=== PATIENT | male | born 1945 | race Caucasian/White ===

== ENCOUNTER → 2016-09-21 | Outpatient (CLI) | payer MEDICARE, OTHER | END | disposition home or self-care (01) | LOC: GMAB 10:22 | PROVIDERS: ATTEND Family Medicine | DX: Z12.5 Encounter for screening for malignant neoplasm of prostate (principal); I10 Essential (primary) hypertension; E29.1 Testicular hypofunction | CPT/HCPCS: 84403; 84443; G0103 ==

== ENCOUNTER 2016-11-23 19:17 | Emergency (ER) | payer MEDICARE, OTHER ==
[2016-11-23 19:32] VITALS: TEMP 98.6; O2SAT 98
--- NOTE | 2016-11-23 19:56 | ED.PDOC ---
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 Timing/Duration: just prior to arrival Severity: moderate Location: hands - right Improving Factors: nothing Worsening Factors: nothing Associated Symptoms: denies symptoms, other - see hpi Allergies/Adverse Reactions: Allergies NO KNOWN ALLERGY Allergy (Unverified 01/28/13 19:38) Home Medications: Ambulatory Orders Captopril 25 mg PO DAILY 12/19/13 Digoxin 0.25 mg PO DAILY 12/19/13 Furosemide [Lasix] 40 mg PO DAILY 12/19/13 Metoprolol Tartrate 25 mg PO DAILY 12/19/13 Potassium Chloride Microencaps [Klor-Con M20] 20 meq PO DAILY 12/19/13 Warfarin Sodium 10 mg PO DAILY 12/19/13 Review of Systems - Review of Systems Constitutional: States: no symptoms reported EENTM: States: no symptoms reported Respiratory: States: no symptoms reported Cardiology: States: no symptoms reported Skin: States: see HPI Past Medical History (General) - Patient Medical History Hx Seizures: No Hx Stroke: Yes Hx Dementia: No Hx Asthma: No Hx of COPD: No Hx Cardiac Disorders: Yes Hx Congestive Heart Failure: Yes Hx Pacemaker: Yes Hx Hypertension: Yes Hx Thyroid Disease: No Hx Diabetes: No Hx Gastroesophageal Reflux: No Hx Renal Disease: No Hx Cancer: No Hx of HIV: No Hx Hepatitis C: No Hx MRSA: No Surgical History: other - heart valve replacement - Vaccination History Hx Tetanus, Diphtheria Vaccination: No Hx Influenza Vaccination: Yes Hx Pneumococcal Vaccination: Yes Immunizations Up to Date: Yes - Social History Hx Tobacco Use: No Hx Alcohol Use: No Hx Substance Use: No Hx Substance Use Treatment: No Hx Depression: No - Activities of Daily Living Grooming Ability: Independent Eating (Feeding) Ability: Independent Toileting Ability: Independent Family Medical History - Family History Mother Family History: No Known Hx Family Cancer: Yes - colon-sister Physical Exam - Physical Exam General Appearance: Alert, No apparent distress Eyes, Ears, Nose, Throat Exam: PERRL/EOMI, normal ENT inspection Neck: non-tender, supple Cardiovascular/Chest: normal peripheral pulses, no gallop, no murmur Respiratory: chest non-tender, lungs clear Gastrointestinal/Abdominal: normal bowel sounds, non tender, soft, no organomegaly Back Exam: normal inspection, no CVA tenderness Neurologic: alert, normal mood/affect, oriented x 3 Skin Exam: warm/dry, normal color Skin Problem Location: upper extremities - right hand Skin Character: other - skin tear right hand Lymphatic: no adenopathy Progress - Progress Progress: 11/23/16 20:00 Wound care done with application of surgicel covered sterile pressure dressing Departure - Departure Clinical Impression: Skin tear of right hand without complication Qualifiers: Encounter type: initial encounter Qualified Code(s): S61.411A - Laceration without foreign body of right hand, initial encounter Time of Disposition: 20:04 Disposition: Discharge to Home or Self Care Condition: Good Departure Forms: ED Discharge - Pt. Copy, Patient Portal Self Enrollment Instructions: DI for Avulsion Laceration (Not Requiring Sutures) Referrals: Tin Rachel MD [Primary Care Provider] - 1-2 Weeks Home Medications: Ambulatory Orders Captopril 25 mg PO DAILY 12/19/13 Digoxin 0.25 mg PO DAILY 12/19/13 Furosemide [Lasix] 40 mg PO DAILY 12/19/13 Metoprolol Tartrate 25 mg PO DAILY 12/19/13 Potassium Chloride Microencaps [Klor-Con M20] 20 meq PO DAILY 12/19/13 Warfarin Sodium 10 mg PO DAILY 12/19/13 Additional Instructions: Return to emergency room as needed;Follow up with primary md in one week if needed
[2016-11-23] MEDS ORDERED: TETANUS,DIPHTHERIA,PERTUSSIS 1 EA SYG IM ONE (19:57)
[2016-11-23 20:07] VITALS: BP 151/95
== END 2016-11-23 20:07 | disposition home or self-care (01) ==
LOC: ER 19:17
DX: S61.411A Laceration without foreign body of right hand, initial encounter (principal); I11.0 Hypertensive heart disease with heart failure; I50.9 Heart failure, unspecified; Z79.01 Long term (current) use of anticoagulants; Z79.899 Other long term (current) drug therapy; Z95.2 Presence of prosthetic heart valve; Z86.73 Personal history of transient ischemic attack (TIA), and cerebral infarction without residual deficits; Z23 Encounter for immunization; W45.8XXA Other foreign body or object entering through skin, initial encounter; W20.8XXA Other cause of strike by thrown, projected or falling object, initial encounter; Y92.009 Unspecified place in unspecified non-institutional (private) residence as the place of occurrence of the external cause

== ENCOUNTER → 2017-06-06 | Outpatient (CLI) | payer MEDICARE, OTHER | LOC: GMAB 17:10 | PROVIDERS: ATTEND Family Medicine | DX: M10.9 Gout, unspecified (principal) ==

== ENCOUNTER → 2017-07-29 | Outpatient (CLI) | payer MEDICARE, OTHER | LOC: GMAB 16:40 | PROVIDERS: ATTEND Family Medicine | DX: R06.02 Shortness of breath (principal); R60.0 Localized edema ==

== ENCOUNTER 2017-09-27 08:39 | Inpatient (IN) | payer MEDICARE, OTHER ==
--- NOTE | 2017-09-27 09:22 | ED.PDOC ---
History of Present Illness - General Chief Complaint: General Stated Complaint: Decreased endurance, weakness Time Seen by Provider: 09/27/17 08:49 Source: patient Exam Limitations: no limitations - History of Present Illness Initial Comments: Terrell Hermosillo 72 y/o male stated that he had been SOB for the last 4 weeks with exertional dyspnea and chest discomfort had seen primary md and was told that he had low blood.takes coumadin for his heart valve replacement and mentioned that he occasional tarry stools as well as purplish blood in stool denies hematemesis.Also had colonoscopy 5 years ago no abnormalities noted. Timing/Duration: other - 4 weeks Severity: moderate Improving Factors: nothing Worsening Factors: nothing Associated Symptoms: shortness of breath, other - see hpi Allergies/Adverse Reactions: Allergies NO KNOWN ALLERGY Allergy (Verified 09/27/17 08:54) Home Medications: Ambulatory Orders Captopril 25 mg PO DAILY 12/19/13 Digoxin 0.25 mg PO DAILY 12/19/13 Furosemide [Lasix] 40 mg PO DAILY 12/19/13 Metoprolol Tartrate 25 mg PO DAILY 12/19/13 Potassium Chloride Microencaps [Klor-Con M20] 20 meq PO DAILY 12/19/13 Warfarin Sodium 10 mg PO SUTUTHSA 12/19/13 Warfarin Sodium 5 mg PO MOWEFR 09/27/17 Review of Systems - Review of Systems Constitutional: States: weakness EENTM: States: no symptoms reported Respiratory: States: see HPI, short of breath Cardiology: States: other - chest discomfort Gastrointestinal/Abdominal: States: see HPI Genitourinary: States: no symptoms reported Musculoskeletal: States: no symptoms reported Skin: States: no symptoms reported Neurological: States: no symptoms reported Hematologic/Lymphatic: States: see HPI Past Medical History (General) - Patient Medical History Hx Seizures: No 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 Hx Dementia: No Hx Asthma: No Hx of COPD: No Hx Cardiac Disorders: Yes - Valve replacements Hx Congestive Heart Failure: Yes Hx Pacemaker: Yes Hx Hypertension: Yes Hx Thyroid Disease: No Hx Diabetes: No Hx Gastroesophageal Reflux: No Hx Renal Disease: No Hx Cancer: No Hx of HIV: No Hx Hepatitis C: No Hx MRSA: No Surgical History: cholecystectomy, pacemaker, tonsillectomy, other - heart valve replacement - Vaccination History Hx Tetanus, Diphtheria Vaccination: No Hx Influenza Vaccination: Yes - 2017 Hx Pneumococcal Vaccination: Yes - Social History Hx Tobacco Use: No Hx Alcohol Use: No Hx Substance Use: No Hx Substance Use Treatment: No Hx Depression: No Hx Physical Abuse: No Hx Emotional Abuse: No - Activities of Daily Living Patient Lives Alone: No - Grooming Ability: Independent Eating (Feeding) Ability: Independent Toileting Ability: Independent Family Medical History - Family History Mother Family History: No Known Living Status: Hx Family Cancer: Yes - colon-sister Physical Exam - Physical Exam General Appearance: Alert, Comfortable, No apparent distress Eye Exam: right other - legally blind, left normal Ears, Nose, Throat: hearing grossly normal, normal ENT inspection, normal pharynx Neck: non-tender, full range of motion, supple Respiratory: chest non-tender, lungs clear, normal breath sounds, no respiratory distress Cardiovascular/Chest: normal peripheral pulses, regular rate, rhythm, no gallop , other - crisp heart valve Peripheral Pulses: radial,right: 2+, radial,left: 2+ Gastrointestinal/Abdominal: normal bowel sounds, non tender, soft, no organomegaly Rectal Exam: normal rectal tone, heme positive stool Back Exam: no CVA tenderness, no vertebral tenderness Extremity: non-tender, normal inspection, no calf tenderness, pedal edema - 2+ bilaterally Neurologic: no motor/sensory deficits, alert, oriented x 3 Skin Exam: normal color, warm/dry Lymphatic: no adenopathy Progress - Progress Progress: 09/27/17 09:25 Vital Signs - 8 hr 09/27/17 08:49 Temperature 97.6 F Pulse Rate [ 65 Apical] Respiratory 20 Rate Blood Pressure 139/78 [Left Arm] O2 Sat by Pulse 100 Oximetry - Results/Orders Results/Orders: 09/27/17 09:26 URINALYSIS Stat 09/27/17 09:45 PRBC [PACKED CELLS,LR] Stat TYPE AND SCREEN Stat Laboratory Results - last 24 hr 09/27/17 09/27/17 09/27/17 09:00 09:42 09:45 WBC 7.8 RBC 1.90 L Hgb 6.1 L* Hct 18.0 L MCV 94.3 H MCH 32.1 H MCHC 33.7 RDW 16.5 H Plt Count 190 MPV 9.6 Absolute Neuts (auto) 5.90 Absolute Lymphs (auto) 1.00 Absolute Monos (auto) 0.70 Absolute Eos (auto) 0.10 Absolute Basos (auto) 0.10 Neutrophils % 75.3 Lymphocytes % 13.1 L Monocytes % 9.1 H Eosinophils % 1.5 Basophils % 1.0 PT 37.5 H* INR 3.270 PTT (SP) 48.3 H Sodium 137 Potassium 4.3 Chloride 103 Carbon Dioxide 27 Anion Gap 11.3 L BUN 22 H Creatinine 1.12 BUN/Creatinine Ratio 19.6 Random Glucose 107 H Serum Osmolality 277.6 Calcium 8.6 Magnesium 2.2 Total Bilirubin 0.9 Direct Bilirubin 0.2 Indirect Bilirubin 0.7 AST 29 ALT 12 Alkaline Phosphatase 37 L Creatine Kinase 29 L CK-MB (CK-2) 1.9 CK-MB (CK-2) % Not Reportable Troponin I 0.02 B-Natriuretic Peptide 104.0 H Serum Total Protein 6.4 Albumin 3.6 Stool Occult Blood Positive Patient ABO/Rh A POSITIVE Antibody Screen Negative Crossmatch See Detail - EKG/XRAY/CT XRAY: chest - cardiomegaly;no chf Departure - Departure Clinical Impression: [facility] (current) use of anticoagulants, History of heart valve replacement with mechanical valve Gastrointestinal bleed Qualifiers: GI bleed type/associated pathology: unspecified gastrointestinal hemorrhage type Qualified Code(s): K92.2 - Gastrointestinal hemorrhage, unspecified Time of Disposition: 11:32 Disposition: Admit Patient Departure Forms: ED Discharge - Pt. Copy, Patient Portal Self Enrollment Referrals: CLOVER BURGOS MD [Primary Care Provider] - 1-2 Weeks Home Medications: Ambulatory Orders Captopril 25 mg PO DAILY 12/19/13 Digoxin 0.25 mg PO DAILY 12/19/13 Furosemide [Lasix] 40 mg PO DAILY 12/19/13 Metoprolol Tartrate 25 mg PO DAILY 12/19/13 Potassium Chloride Microencaps [Klor-Con M20] 20 meq PO DAILY 12/19/13 Warfarin Sodium 10 mg PO SUTUTHSA 12/19/13 Warfarin Sodium 5 mg PO MOWEFR 09/27/17 Decision To Admit - Decistion To Admit Decision to Admit Reason: Admit from ER Decision to Admit Date: 09/27/17 - D/W Romulo Langford-ANP/Hospitalist Decision to Admit Time: 11:32
--- NOTE | 2017-09-27 10:09 | RAD ---
EXAM DESCRIPTION: Chest,1 View CLINICAL HISTORY: 72 years Male, SOB COMPARISON: Previous study December 19, 2013, previous report chest x-ray July 29, 2017 TECHNIQUE: AP portable chest. FINDINGS: Heart size is large with prominent central pulmonary vascularity. Cardiac pacer is in place. Blunting of left costophrenic angle suggests a small amount of pleural fluid. No consolidating infiltrate. No pulmonary mass or worrisome nodule. No pneumothorax or large pleural effusion. Bones are unremarkable. Findings are similar to previous study in November 2013. IMPRESSION: Large heart without congestive failure. Small left pleural effusion. Electronically signed by: Nickolas Tsai MD 09/27/2017 10:08 AM CDT
[2017-09-27] MEDS ORDERED: PANTOPRAZOLE INJECTION 80 MG in SODIUM CHLORIDE 0.9% 100ML 80 ML IVPB ONE (10:41)
[2017-09-27] MEDS ORDERED: PANTOPRAZOLE SODIUM IV 40 MG VIAL ONE (10:57)
[2017-09-27] MEDS ORDERED: SODIUM CHLORIDE 0.9% 100ML 100 ML IVPB ONE (10:58)
[2017-09-27] MEDS ORDERED: SODIUM CHLORIDE 0.9% 250ML 250 ML ONE (12:17)
--- NOTE | 2017-09-27 13:20 | HP ---
SUPERVISING PHYSICIAN: Portillo De La Paz M.D. CHIEF COMPLAINT: Increasing weakness. HISTORY OF PRESENT ILLNESS: Mr. Hermosillo is a 72 year-old male patient that has been in the past followed by Dr. Rachel. He has a history of being on Coumadin for dual valve replacement. Today, he presented to the Emergency Department complaining of shortness of breath that he noted had been increasing over the last 4 weeks with increasing exertional dyspnea and some mild chest discomfort. He was seen in the office this morning and was told that he had an extremely low blood count. He noted that he had been having some occasional tarry stools as well as some purplish blood in his stools. Denied any actual hematemesis. He reports that he had a colonoscopy in 2014 that was not with any abnormal findings. His H&H in the Emergency Room on presentation showed he had a hemoglobin of 6.1, hematocrit 18.0 with platelet count 190,000. His coagulation studies showed he had a PT of 37.5 with INR of 3.27 and PTT of 48.3. Troponin was less than 0.02. He was showing to be hemodynamically stable with initial blood pressure in the Emergency Department of 139/78, heart rate 65. He was satting 100% on room air with respirations of 20. Given the significant anemia, a cross match was started and he was given 2 units of blood initially in the Emergency Department. I was called for admission and after further visiting with the patient and going over the patient's history, his drop in hemoglobin appears to be occurring over at least a month or more and appears to be without any acute findings, and he is stable in regards to his blood pressure therefore the patient will now be admitted to the Medical/ Surgical floor for further treatment and evaluation of his underlying anemia. He was admitted in stable condition. PAST MEDICAL HISTORY: 1. Congestive heart failure. 2. Rheumatic fever at age 7. 3. Gouty arthritis. 4. Mitral and aortic valve replacement with a St. Álvaro's valve. 5. Cardiac pacemaker implantation. 6. Sick sinus syndrome with severe sinus bradycardia. 7. Transient ischemic attack. 8. Atrial fibrillation on Digoxin and Coumadin. PAST SURGICAL HISTORY: 1. Cholecystectomy in 2001. 2. Tonsillectomy. 3. Cardiac valve replacement including aortic and mitral valve in 1976, 1979 [address] Álvaro valve. 4. Pacemaker implantation. OUTPATIENT MEDICATIONS: 1. Coumadin 5 mg Saturday, Saturday and Saturday. 2. Potassium chloride 20 mEq daily. 3. Metoprolol 25 mg daily. 4. Lasix 40 mg daily. 5. Digoxin 0.25 mg daily. 6. Captopril 25 mg daily. ALLERGIES: NO KNOWN DRUG ALLERGIES. FAMILY HISTORY: Significant for colon cancer in his dad. Valvular disease in his sister. SOCIAL HISTORY: The patient is disabled due to valvular heart disease and congestive heart failure. He is and lives in [place]. He has a history of smoking but quit 40 years previously. REVIEW OF SYSTEMS: CONSTITUTIONAL: As per History of Present Illness, increasing weakness, general malaise. HEENT: No headaches, sore throat, nasal congestion, ear aches. RESPIRATORY: As noted in History of Present Illness, increasing shortness of breath with exertional dyspnea. No wheezing or cough. CARDIOVASCULAR: Some mild chest discomfort. No reported chest pains or palpitations or syncopal episodes. GASTROINTESTINAL: As noted in History of Present Illness, dark tarry stools over the last several weeks. No ascencion blood. No hematemesis. No abdominal pain, constipation or diarrhea. GENITOURINARY: Denies any dysuria, hematuria, polyuria or other urinary symptoms. NEUROLOGIC: Denies any seizures, ataxia, syncopal episodes or other neurologic deficits. PHYSICAL EXAMINATION: VITAL SIGNS: In the Emergency Department showed initially he had a temperature of 97.6, pulse 65, blood pressure 139/78, respirations 20, satting 100% on room air. GENERAL: The patient appeared to be resting comfortably in no acute distress. He does look tired and somewhat pale. HEENT: Tympanic membranes were clear bilaterally. The patient is legally blind in his right eye. Oropharynx is pink and moist without any lesions. Sclera were pale. NECK: Supple, non-tender with full range of motion. CHEST: Clear to auscultation without any rhonchi, wheezing or rales. CARDIOVASCULAR: Regular rate and rhythm with no gallops or rubs with a notable valvular sound with a slight murmur. GASTROINTESTINAL: Bowel sounds were normal. Abdomen was soft, non-tender. No guarding or rebound tenderness. EXTREMITIES: No clubbing or cyanosis. There was 1+ pedal edema bilaterally. NEUROLOGIC: He is alert and oriented times three. Facial features were symmetrical. Extraocular movements are within normal limits. There was no notable nystagmus. RECTAL: Exam was deferred as this was performed by the E. [facility]. physician. Noted normal rectal tone with heme positive stools. LABORATORY: CBC showed a white count of 7,800 with hemoglobin 6.1, hematocrit 18.0. RBC indices indicated a macrocytic hypochromic presentation with platelet count 190,000. Differential showed to be without a left shift. Coagulation studies showed an elevated PT at 37.5 with INR 3.27, PTT of 48.3. Chemistries showed normal electrolytes with BUN 22, creatinine 1.12, magnesium 2.2, calcium 8.6. Liver functions were all within normal limits. Troponin was 0.02. He had 1 occult blood that was positive. RADIOLOGY: Chest x-ray in the Emergency Department per radiology interpretation showed large heart without congestive failure. There is a small left pleural effusion. ASSESSMENT 1. Symptomatic anemia with the patient on Coumadin secondary to prosthetic heart valves with questionable upper gastrointestinal bleed with no noted acute loss and the patient showing to be stable. 2. Generalized weakness secondary to significant anemia. 3. History of rheumatic heart disease with heart valve replacements of the mitral and aortic valves. 4. Chronic congestive heart failure secondary to valvular disease and prosthetic heart valves from rheumatic fever with no current echocardiogram available for review at time of admission. 5. History of gouty arthritis. PLAN: The patient is going to be admitted to the Medical/Surgical floor for initiation of blood. He was initially given a unit in the E. R. This will be continued up with a total of 2 which will be followed-up with an H&H after the second unit. If he shows a significant increase, will continue to observe. If not significantly increased on initial 2 units, will certainly give a third unit. Will closely monitor his H&H at least for 24 to 48 hours to ensure he is not showing any acute loss. Will order occult bloods. Will hold his Coumadin tonight as his INR was slightly elevated at 3.2 which is his therapeutic range, but given the risk for GI bleed will reassess in the morning and treat appropriately with dosing of his Coumadin. Resume all of his other medications as appropriate once those have been updated and verified. Will anticipate length of stay to be at least 2 to 3 days. Until showing to be clinically stable in regards to his H&H, will continue to monitor and treat appropriately. If the patient shows any decline in his clinical condition, certainly will warrant transfer to [facility] for gastrointestinal consultation emergently , but at this point the patient is showing to be stable and will continue to treat here. Until discharge, will monitor and treat appropriately. #[id number] [facility]
[2017-09-27] MEDS ORDERED: ONDANSETRON INJ 4 MG/2 ML VIAL IV PRN (14:38)
[2017-09-27] MEDS ORDERED: ACETAMINOPHEN 325 MG TAB PO PRN (14:38)
[2017-09-27] MEDS ORDERED: SODIUM CHLORIDE 0.9% (FLUSH) 10 ML SYG IV PRN (14:38)
[2017-09-27] MEDS ORDERED: ACETAMINOPHEN 325 MG TAB PO ONE ×2 (14:47→22:53)
[2017-09-27] MEDS ORDERED: diphenhydrAMINE HCL 50 MG/ML VIAL IV ONE (14:47)
[2017-09-27] MEDS ORDERED: SODIUM CHLORIDE 0.9% 500ML 500 ML IVS SCH (15:00)
[2017-09-27] MEDS ORDERED: IV SET AND CAP CHANGE INJ INJ SCH (15:00)
[2017-09-27] MEDS: SUCRALFATE 1 GM TAB PO SCH ×2 (16:30→21:29)
[2017-09-27] MEDS: PANTOPRAZOLE SODIUM IV 40 MG VIAL IV SCH (21:29)
[2017-09-27] MEDS ORDERED: FUROSEMIDE INJ 20 MG/2 ML VIAL IV ONE (22:53)
[2017-09-28] MEDS: SUCRALFATE 1 GM TAB PO SCH ×4 (06:17→20:30)
[2017-09-28] MEDS ORDERED: METOPROLOL TARTRATE 25 MG TAB PO SCH (09:00)
[2017-09-28] MEDS ORDERED: FUROSEMIDE 40 MG TAB PO SCH (09:00)
[2017-09-28] MEDS ORDERED: CAPTOPRIL 25 MG PO SCH (09:00)
[2017-09-28] MEDS ORDERED: POTASSIUM CHLORIDE 20 MEQ TAB PO SCH (09:00)
[2017-09-28] MEDS: DIGOXIN 0.25 MG TAB PO SCH ×2 (11:00→14:45)
[2017-09-28] MEDS: PANTOPRAZOLE SODIUM IV 40 MG VIAL IV SCH ×2 (11:13→20:30)
[2017-09-28] MEDS ORDERED: WARFARIN SODIUM 2.5 MG TAB PO SCH (12:00)
[2017-09-28 22:01] VITALS: BP 138/65; TEMP 98.8; O2SAT 97
--- NOTE | 2017-09-28 22:43 | PN ---
DATE: 09/28/17 SUPERVISING PHYSICIAN: Portillo De La Paz M.D. SUBJECTIVE: The patient got 4 units of blood total since admission without any complications. He notes that he feels much better. No longer feels weak, short of breath or have any chest discomfort. He has had 1 melenic stool but in between he had normal-looking stools. He has had no nausea or vomiting and he has been afebrile. OBJECTIVE: VITAL SIGNS: Temperature 98.4, pulse 71, blood pressure 122/65, respirations 14, satting 98% on room air. Weight was 86.1 kg. CHEST: Lungs were clear to auscultation bilaterally. HEART: Slightly irregular rate and rhythm. ABDOMEN: Soft, non-tender. Positive bowel sounds. EXTREMITIES: No clubbing, cyanosis or edema. NEUROLOGIC: He is alert and oriented times three. LABORATORY: H&H after 2 units was 7.4 and 21.6 last night and then after an additional 2 units for a total of 4 this morning it was 8.8 and 26.1. Coagulation studies include PT of 26.0 with INR 2.26. Chemistries continue to show normal electrolytes, BUN 19, creatinine 1.19. He did have 1 stool occult blood that was positive in the E. R. He has not had any additional collections since admission. ASSESSMENT: 1. Symptomatic anemia with the patient on Coumadin therapy for prosthetic heart valve with concerns for an upper gastrointestinal bleed with no noted acute loss and the patient showing to be hemodynamically stable requiring transfusion of 4 units . 2. Generalized weakness secondary to significant anemia. 3. History of rheumatic heart disease with heart valve replacements of the mitral and aortic valves chronic Coumadin. 4. Chronic congestive heart failure secondary to valvular disease and prosthetic heart valves from rheumatic fever with no current echocardiogram available for review at time of admission with the patient having no signs of exacerbation. 5. History of gouty arthritis. PLAN: The patient received a total of 4 units since this morning. Will plan to again check his H&H tonight at 8:00. The threshold at this point as he is on Coumadin is to maintain his hemoglobin at least above 8.2 if possible in efforts to hopefully discharge the patient to followup on Saturday with Dr. Li to have additional workup in regards to the GI bleed. His INR this morning was continuing to be therapeutic but on the low side, therefore will continue his Coumadin but I will drop his dose at 2.5 as he is a high risk for thrombosis due to his heart valves, but this does complicate his questionable GI bleed and will continue to closely monitor. Should he show at any time to be clinically unstable or show a dramatic loss, certainly will transfer the patient to [place] where he has seen GI previously and where his heart doctors are. If he remains stable, the plan will be to repeat an H&H in the morning and then discharge home to have close clinical followup on Saturday. Will plan to repeat an H&H in the morning along with a PT and INR, and again if stable discharge tomorrow morning. Until then, continue to monitor and treat appropriately. #[id number] [facility]
--- NOTE | 2017-09-30 09:22 | DS ---
SUPERVISING PHYSICIAN: Portillo De La Paz MD ADMISSION DIAGNOSIS: 1. Symptomatic anemia with the patient on Coumadin due to prosthetic heart valves with concern upper gastrointestinal bleed, unsure of acute loss versus chronic as the patient was stable on admission and having a therapeutic Coumadin level. 2. Generalized weakness secondary to #1. 3. History of rheumatic heart disease with heart valve replacements of the mitral and aortic valves with [place] [place] valve. 4. Chronic congestive heart failure secondary to valvular disease and prosthetic heart valves ad noted above. 5. History of gouty arthritis. DISCHARGE DIAGNOSIS: 1. Symptomatic anemia requiring transfusion of 4 units of packed red blood cells showing the patient to have stable hemoglobin and hematocrit, again, with the patient on Coumadin and showing therapeutic levels with concerns for an upper gastrointestinal bleed, but no acute loss while hospitalized with the patient remaining hemodynamically stable. 2. Generalized weakness secondary to #1, improved after transfusions. 3. History of rheumatic heart disease with heart valve replacements of the mitral and aortic valves. 4. History of chronic congestive heart failure due to valvular disease and prosthetic heart valves with no current echocardiogram available for review at time of admission with the patient having no signs of exacerbation. 5. History of gouty arthritis. REASON FOR HOSPITALIZATION: Mr. Hermosillo is a 72-year-old male patient that has been in the past followed by Dr. Rachel. He is now being followed by Dr. Li. He has a history of being on chronic Coumadin therapy for dual valve replacement. On the day of admission, he presented to the Emergency Department complaining of shortness of breath and he noted this had been increasing over the last 4 weeks with increasing exertional dyspnea and some mild chest discomfort. He was seen in the office the same day and was told that he had an extremely low blood count and was referred to the Emergency Department. He noted that he had been having some occasional tarry stools that had been present for well over 4 weeks and describes as some purplish blood at times. Denied any actual hematemesis. He reports that he had a colonoscopy in 2014 that was not with any abnormal findings. His hemoglobin and hematocrit in the Emergency Room on presentation was 6.1, hematocrit 18.0 with platelet count 190,000. He was hemodynamically stable. His coagulation studies showed he had a PT of 37.5 with INR of 3.27 and PTT of 48.3. Troponin was less than 0.02. Given the significant anemia, a cross match was started and he was given 2 units of blood initially in the Emergency Department. I was called for admission of the patient for additional transfusion and further monitoring the patient with concerns for possible acute GI bleed. It was noted the patient had a history of some stools that were described as tarry, but his drop in hemoglobin and hematocrit had occurred over at least 4 weeks and appear to be without any acute findings and he was stable at time of admission. His blood pressure was 139/78, heart rate 65. The patient was without any complaints, having no chest pain. He was admitted in stable condition. LABORATORY: CBC on admission showed hemoglobin 6.1, hematocrit 18.0, platelet count 190,00. After 2 unit transfusion, his hemoglobin had gone up to 7.4 and hematocrit 21.6. An additional 2 units for total of 4 unit transfusion since admission and repeat hemoglobin and hematocrit were 8.8 and 26.1. On the date of discharge, later that night, his hemoglobin and hematocrit had stabilized and was 9.0 and 26.8. Coagulation studies showed initially his INR was 3.27 on admission and after holding his Coumadin for 24 hours, at discharge was 2.26. Chemistries showed normal electrolytes both on admission and at discharge. BUN was initially elevated at 22, but had gone down to 19 prior to discharge. Creatinine 1.19. All liver functions were normal. Troponin normal at 0.02. He had one occult blood in the Emergency Room that was positive. No other stools were obtained. He had a chest x-ray initially on admission and per radiologic interpretation of a single view chest, there was a large heart without any congestive failure, just a small left pleural effusion. HOSPITAL COURSE: Mr. Hermosillo was admitted from the Emergency Room as noted above for significant anemia that was symptomatic. He was initially cross-matched and given 1 unit in the Emergency Department and then admitted in stable condition for an additional unit, for a total of 2. Hemoglobin had shown some improvement, but continued to be significantly low and he was given additional 2 units for a total of 4 units. He had no complications with his infusion and was showing signs of acute loss, no dark tarry stools, no bright red blood, no nausea or vomiting. Hemoglobin and hematocrit were stabilizing after the units were transfused. Initial INR was therapeutic, however, dose was held for 24 hours and restarted on 2.5 mg of Coumadin on day of discharge with his INR continuing to be therapeutic. Given that his hemoglobin and hematocrit had stabilized and was actually showing improvement after 12 hours post transfusion , it was felt the patient was stable enough to be discharged to have followup in the outpatient setting. The patient was started on Protonix 80 mg b.i.d. as well as Carafate. PLAN: The patient was instructed to followup on the following morning, 09/29/17, for repeat hemoglobin and hematocrit and PT and INR. He was given a lab slip and was instructed to remain in the lab could be completed and could be reviewed in order to ensure that his hemoglobin and hematocrit were stable and to further determine next needed dose of Coumadin. He was to resume his normal diet and home medications except for the Coumadin as noted above with further adjustments based on labs to be determined after discharge. He was to have close clinical followup with Dr. Li on Saturday and to call their office at 8 o'clock to establish that appointment. He was told to return to the Emergency Room should he have any return of symptoms or increased number of stools, bloody stools, bright red blood or any dark stools or any other concerning symptoms. Diet was to be a soft mechanical diet, advancing to a regular diet as tolerated. He was told to avoid spicy foods, acidic foods as well as any alcohol. Activity to increase as tolerated. DISCHARGE MEDICATIONS: 1. Protonix 40 mg daily, #30. 2. Carafate tablets 1 gram before each meal and at bedtime, #28. 3. Coumadin was to be held until levels could be completed after discharge. All other medications were resumed as previous. Condition at discharge was stable and improved. #[id number] [facility]
== END 2017-09-28 10:00 | disposition home or self-care (01) | DRG 812 ==
LOC: ER 08:39 → MS 13:19
PROVIDERS: ADMIT Family Medicine; ATTEND Nurse Practitioner Family
PROC: 30233N1 Transfusion of Nonautologous Red Blood Cells into Peripheral Vein, Percutaneous Approach (ICD-10-PCS; principal; 2017-09-27)
PROC: 30233N1 Transfusion of Nonautologous Red Blood Cells into Peripheral Vein, Percutaneous Approach (ICD-10-PCS; 2017-09-28)
DX: D64.9 Anemia, unspecified (principal); K92.1 Melena; R53.1 Weakness; I11.0 Hypertensive heart disease with heart failure; I50.9 Heart failure, unspecified; I48.91 Unspecified atrial fibrillation; M10.9 Gout, unspecified; Z95.2 Presence of prosthetic heart valve; Z79.01 Long term (current) use of anticoagulants; Z95.0 Presence of cardiac pacemaker; Z86.73 Personal history of transient ischemic attack (TIA), and cerebral infarction without residual deficits; Z79.899 Other long term (current) drug therapy; Z87.891 Personal history of nicotine dependence

== ENCOUNTER → 2017-09-29 | Outpatient (CLI) | payer MEDICARE, OTHER | LOC: LAB.O 09:09 | PROVIDERS: ATTEND Nurse Practitioner Family | DX: K92.2 Gastrointestinal hemorrhage, unspecified (principal); Z79.01 Long term (current) use of anticoagulants ==

== ENCOUNTER → 2017-10-15 | Outpatient (CLI) | payer MEDICARE, OTHER | LOC: GMAE 10:46 | PROVIDERS: ATTEND Family Medicine | DX: D50.8 Other iron deficiency anemias (principal); E53.8 Deficiency of other specified B group vitamins ==

== ENCOUNTER → 2017-10-28 | Outpatient (CLI) | payer MEDICARE, OTHER | LOC: GMAE 16:42 | PROVIDERS: ATTEND Family Medicine | DX: R25.2 Cramp and spasm (principal) ==

== ENCOUNTER → 2017-12-02 | Outpatient (CLI) | payer MEDICARE, OTHER | LOC: GMAE 11:33 | PROVIDERS: ATTEND Family Medicine | DX: D50.8 Other iron deficiency anemias (principal); E53.8 Deficiency of other specified B group vitamins ==

== ENCOUNTER 2018-02-21 10:50 | Inpatient (IN) | payer MEDICARE, OTHER ==
[2018-02-21] MEDS ORDERED: NITROGLYCERIN 0.4 MG 25 EA TAB SL PRN ×2 (11:03→11:07)
--- NOTE | 2018-02-21 11:03 | HP ---
SUPERVISING PHYSICIAN: Portillo De La Paz MD CHIEF COMPLAINT: Shortness of breath and extreme weakness. HISTORY OF PRESENT ILLNESS: This is a 72-year-old male patient who was seen in his primary care physician's office earlier in the week due to a hemorrhage in his eye. He is on chronic Coumadin therapy for a mechanical heart valve and his INR is supposed to be between 3 and 4. He has seen Dr. Luis, outpatient interviewing clerk, that has no concerns right now. He was seeing his primary care physician today as followup and on his appointment today, he was very short of breath and extremely weak. He said he had a difficult time just walking. Dr. Li ran a CBC on him and his WBCs were 6.8, hemoglobin 8.3 and hematocrit 26.6. He also has rales throughout all chest calderón and had 3+ pitting edema on his lower extremities. INR was slightly subtherapeutic at 2.6 and I was called for direct admission to the hospital to treat for congestive heart failure and anemia. The patient noted that he has had anemia for quite some time. He had an upper GI at some point in the last few months and they did not find anything conclusive. He is to continue his workup next week with his GI specialist for colonoscopy for further evaluation of this normocytic/normochromic anemia. He also has a significant history of heart failure. There is no echocardiogram to review on the patient, but he has had several bouts of rheumatic fever as a child which have resulted in rheumatic heart disease. He has had three open heart surgeries as well as pacemaker insertion. He actually had a pig valve at one time, but he now has a mechanical valve, thus his INR needing to be between 3 and 4. The patient is being directed admitted to the Medical/Surgical Floor at the hospital. PAST MEDICAL HISTORY: 1. Normocytic/normochromic anemia of unknown etiology. 2. Congestive heart failure of unknown etiology with no current echocardiogram to review. 3. History of rheumatic fever as a child resulting in rheumatic heart disease. 4. Gouty arthritis, presently on no medications. He only rarely has flare-ups. 5. Several transient ischemic attack and mini-strokes due to trying to come off of Coumadin therapy. PAST SURGICAL HISTORY: 1. Cholecystectomy. 2. Tonsillectomy. 3. Three heart surgeries including aortic and mitral valve replacement. He presently has a mechanical valve. 4. Pacemaker insertion. OUTPATIENT MEDICATIONS: 1. Captopril. 2. Carvedilol. 3. Digoxin. 4. Furosemide. 5. Potassium chloride. 6. Warfarin. ALLERGIES: NO KNOWN DRUG ALLERGIES. SOCIAL HISTORY: He quit smoking over 50 years ago. He denies any ETOH or illicit drug use. REVIEW OF SYSTEMS: GENERAL: Positive for fatigue. Negative for fever or weight changes. HEENT: Positive for left eye pressure resulting in eye hemorrhage. Negative for blurred vision ear pain, sinus symptoms or sore throat. RESPIRATORY: Positive fro dyspnea and occasional wet cough. Negative for wheezing. CARDIAC: Negative for chest pain. Positive for orthopnea, pedal edema. He does have to sleep with multiple pillows due to his shortness of breath. GASTROINTESTINAL: Negative for nausea, vomiting, diarrhea, constipation or abdominal pain. GENITOURINARY: Negative for hematuria, dysuria or polyuria. INTEGUMENT: Negative for lesions or rashes. NEUROLOGIC: Negative for headache, dizziness or seizures. PHYSICAL EXAMINATION: VITAL SIGNS: Temperature 98.2. Heart rate 61. Blood pressure 137/89. Respiratory rate 24. O2 saturation 98% on room air. GENERAL: This is a 72-year-old male patient sitting up in his hospital bed. He is in mild respiratory distress. He speaks in short phrases because of his shortness of breath. HEENT: Normocephalic, atraumatic. Pupils are equal and reactive. He does have his left eye with hemorrhage. NECK: Supple without mass. Mild jugular venous distention. RESPIRATORY: The patient is tachypneic. There are scattered rales throughout all lung field. CHEST: There is equal rise and fall of the chest with inspiration and expiration. CARDIOVASCULAR: Regular rate and rhythm. There is systolic murmur noted. GASTROINTESTINAL: Abdomen is soft, nondistended, nontender. Bowel sounds are positive. EXTREMITIES: No cyanosis or clubbing. He has bilateral pedal edema at +3. NEUROLOGIC: Awake, alert and oriented times three. Cranial nerves II-XII are grossly intact. LABORATORY: CBC from [facility] shows WBCs 6.8, hemoglobin 8.3, hematocrit 26.6. MCH 31.4, MCHC 31.2. Neutrophils 75.4. INR 2.6. BNP 268, magnesium 2. His other labs are pending at this time. IMPRESSION: 1. Congestive heart failure of unknown etiology with acute exacerbation. 2. Normocytic/normochromic anemia of unknown etiology. He will have a workup next week with a colonoscopy with his GI specialist. 3. Rheumatic heart disease resulting in multiple heart surgeries. He presently has a mechanical valve and a pacemaker. 4. Subtherapeutic INR, which should be between 3 and 4. 5. Left eye hemorrhage, being followed by optometry and no concerns for immediate problems. PLAN: We will admit the patient to the hospital. I have initiated congestive heart failure guidelines. The patient is on a beta jenise and an MADDY inhibitor. We have typed and crossed him for blood and he will receive 2 units of packed red blood cells. I will give him some IV Lasix prior to his blood infusion. We will also give Lasix between unit #1 and unit #2. After completion of his blood today, I will check a BMP and hemoglobin and hematocrit mostly to check his hemoglobin and potassium if it needs replacement. I have restarted his home medications except for his p.o. Lasix and potassium. We will treat that based on his labs for now and restart those medications tomorrow or the next day. He will have Protonix for ulcer prophylaxis and he will continue on his Coumadin. I will check a PT/INR tomorrow. If it continues to be low, we will adjust his Coumadin as needed. He is on a personnel monitor. I need to get in touch with Dr. Li's office so they can send us a recent echocardiogram for review. If he has not had one in the past year, we can either request it from Dr. Cassidy, his grinder machine setter in [place], or recommend that he have another echocardiogram at some point. Otherwise, we will continue to monitor the patient closely and follow as needed. [facility][id number] [facility]
[2018-02-21] MEDS ORDERED: FUROSEMIDE INJ 20 MG/2 ML VIAL IV ONE (11:06)
[2018-02-21] MEDS ORDERED: ACETAMINOPHEN 325 MG TAB PO ONE (11:06)
[2018-02-21] MEDS ORDERED: diphenhydrAMINE HCL 50 MG/ML VIAL IV ONE (11:06)
[2018-02-21] MEDS ORDERED: ACETAMINOPHEN SUPPOSITORY 650 MG PR PRN (11:07)
[2018-02-21] MEDS ORDERED: ONDANSETRON INJ 4 MG/2 ML VIAL IV PRN (11:07)
[2018-02-21] MEDS ORDERED: IV SET AND CAP CHANGE INJ INJ SCH (11:30)
[2018-02-21] MEDS ORDERED: SODIUM CHLORIDE 0.9% 500ML 500 ML IVS SCH (11:30)
[2018-02-21] MEDS ORDERED: FUROSEMIDE INJ 40 MG/4 ML VIAL IV ONE (12:16)
[2018-02-21] MEDS ORDERED: WARFARIN SODIUM 10 MG PO SCH (12:30)
[2018-02-21] MEDS ORDERED: WARFARIN SODIUM 5 MG TAB PO SCH (13:00)
[2018-02-21] MEDS: PANTOPRAZOLE SODIUM IV 40 MG VIAL IV SCH (13:00)
--- NOTE | 2018-02-21 13:47 | RAD ---
EXAM DESCRIPTION: Chest,1 View CLINICAL HISTORY: 72 years Male, chf COMPARISON: Previous study September 28, 2007 TECHNIQUE: AP portable chest. FINDINGS: Heart size is large with mildly increased pulmonary vascularity. Sternotomy wires are present. Cardiac pacer wires are in place. Minimal patchy infiltrates or volume loss in the lung bases left more than right. No pulmonary mass or worrisome nodule. No pneumothorax or right pleural effusion. Small left pleural effusion is suspected. Lateral view may be helpful. Bones are unremarkable. IMPRESSION: Large heart with mild vascular congestion. Patchy bibasilar infiltrates left more than right with small left pleural effusion. Electronically signed by: Nickolas Tsai MD 02/21/2018 1:46 PM [facility]
[2018-02-21] MEDS: FUROSEMIDE INJ 40 MG/4 ML VIAL IV SCH (16:46)
[2018-02-21] MEDS: CARVEDILOL 12.5 MG TAB PO SCH (20:49)
[2018-02-21] MEDS: SODIUM CHLORIDE 0.9% (FLUSH) 10 ML SYG IV PRN (20:54)
[2018-02-22] MEDS: SODIUM CHLORIDE 0.9% (FLUSH) 10 ML SYG IV PRN ×2 (06:21→09:05)
[2018-02-22] MEDS: PANTOPRAZOLE SODIUM IV 40 MG VIAL IV SCH (06:22)
--- NOTE | 2018-02-22 06:32 | RAD ---
EXAM DESCRIPTION: Chest,2 Views CLINICAL HISTORY:72 years Male, CHF Comparison: February 21, 2018 FINDINGS: Enlarged chronic silhouette with mild vascular congestion. Small left pleural effusion with bibasilar opacities representing atelectasis or pneumonia, similar to prior. Right lung is clear. No pneumothorax. Cardiac pacemaker again seen. Electronically signed by: Grupo Hudson MD 02/22/2018 6:31 AM [facility]
[2018-02-22] MEDS ORDERED: LISINOPRIL 5 MG TAB PO SCH (09:00)
[2018-02-22] MEDS: CAPTOPRIL 25 MG PO SCH ×2 (09:00→09:17)
[2018-02-22] MEDS: FUROSEMIDE INJ 40 MG/4 ML VIAL IV SCH ×2 (09:05→16:17)
[2018-02-22] MEDS: DIGOXIN 0.25 MG TAB PO SCH (09:14)
[2018-02-22] MEDS: CARVEDILOL 12.5 MG TAB PO SCH ×2 (09:14→20:38)
[2018-02-22] MEDS ORDERED: FUROSEMIDE INJ 40 MG/4 ML VIAL IV ONE ×2 (11:12→20:00)
[2018-02-22] MEDS ORDERED: ACETAMINOPHEN 325 MG TAB PO ONE (11:12)
[2018-02-22] MEDS ORDERED: diphenhydrAMINE HCL 50 MG/ML VIAL IV ONE (11:12)
[2018-02-22] MEDS ORDERED: POTASSIUM CHLORIDE 20 MEQ TAB PO ONE (11:13)
[2018-02-22] MEDS: WARFARIN SODIUM 5 MG TAB PO SCH (11:44)
[2018-02-22] MEDS: SODIUM CHLORIDE 0.9% 500ML 500 ML IVS SCH ×2 (12:05→12:06)
--- NOTE | 2018-02-22 19:55 | PN ---
DATE: 02/22/18 SUPERVISING PHYSICIAN: Portillo De La Paz M.D. SUBJECTIVE: The patient continues to show some shortness of breath that he was reporting since admission. He feels like he is not in distress as he was on admission. He has had no chest pains. His units are still pending further workup due to antibody from previous packed red blood cells. He has been responding well to Lasix. Discussed that we will continue with Lasix with blood and work to reestablish a more euvolemic state. OBJECTIVE: VITAL SIGNS: temperature 98.3, pulse 59, blood pressure 109/72, respirations 18, satting 100% on nasal cannula at 2 liters. I's and O's show a negative balance of 1134 with 1241 in, 2375 out. Weight is 83.9 kg. GENERAL: The patient is resting comfortably. Appears to be in no acute distress although he is a little winded when he is talking but is able to talk in complete sentences. CHEST: Lung sounds are diminished throughout with some rhonchi heard bilaterally but more so on the right than the left. HEART: Regular rate and rhythm. ABDOMEN: Soft, non-tender. Positive bowel sounds. EXTREMITIES: 1+ edema bilaterally. Pedal pulses are 2+ bilaterally with no clubbing or cyanosis. NEUROLOGIC: He is alert and oriented times three. LABORATORY: Hemoglobin 8.5, hematocrit 26.1 with RBC indices indicating a macrocytic/normochromic presentation. Chemistries show normal electrolytes with potassium 3.9, BUN 24, creatinine 1.13. Bilirubin is slightly up to 1.3. AST is down to 47, ALT remains normal at 16. MICROBIOLOGY: No specimen submitted. RADIOLOGY: Repeat chest x-ray this morning of a single view chest per radiology interpretation shows enlarged cardiac silhouette with mild vascular congestion with a small left pleural effusion with bibasilar opacities representing atelectasis or pneumonia similar to prior exam. Right lung is clear. No pneumothorax. Cardiac pacemaker is again seen. ASSESSMENT: 1. Acute on chronic congestive heart failure, more likely a diastolic dysfunction with last echocardiogram in July 2017 showing an ejection fraction of 53 to 55% with moderate pulmonary hypertension with the patient showing to be high output state secondary to his anemia. 2. Macrocytic/normochromic anemia, uncertain etiology with pending workup with colonoscopy by GI specialist in the coming week. 3. Rheumatic heart disease resulting in multiple heart surgeries and a mechanical valve and a pacemaker. 4. Subtherapeutic INR, which should be between 3 and 4. Continue to monitor and change Coumadin dosing as needed. 5. Left eye hemorrhage followed by optometry with no concerns for immediate problems. PLAN: Will plan to give him 2 units of packed red blood cells today. With give him 40 of Lasix before each unit and after each unit. Will plan to supplement his potassium as well. He is on a beta jenise and Neel inhibitor. Once those units are in will recheck H&H in the morning as well as a BNP. Will anticipate probably discharging tomorrow or Saturday. Until then continue to monitor and treat as needed. #[id number] [facility]
[2018-02-23] MEDS: PANTOPRAZOLE SODIUM IV 40 MG VIAL IV SCH (06:19)
--- NOTE | 2018-02-23 07:05 | RAD ---
EXAM: PA and LATERAL CHEST RADIOGRAPHS CLINICAL INDICATION: Congestive heart failure. COMPARISON: Compared to yesterday's chest radiograph at 0552 hours. FINDINGS: Intact cardiac pacer components remain in unchanged position. Unchanged sequela of remote heart surgery. Cardiac size remains enlarged. Improving pulmonary congestion. Unchanged left basilar probable scar. No pneumothorax or free peritoneal gas. IMPRESSION: Improving chest radiograph. Electronically signed by: Abraham Todd MD 02/23/2018 7:03 AM [employer] [employer]
[2018-02-23] MEDS: DIGOXIN 0.25 MG TAB PO SCH (09:19)
[2018-02-23] MEDS: FUROSEMIDE INJ 40 MG/4 ML VIAL IV SCH (09:19)
[2018-02-23] MEDS: CARVEDILOL 12.5 MG TAB PO SCH ×2 (09:19→20:44)
[2018-02-23] MEDS: CAPTOPRIL 25 MG PO SCH ×2 (09:20)
[2018-02-23] MEDS ORDERED: WARFARIN SODIUM 2 MG TAB PO ONE (11:30)
[2018-02-23] MEDS: WARFARIN SODIUM 5 MG TAB PO SCH (11:59)
--- NOTE | 2018-02-23 16:11 | PN ---
DATE: 02/23/18 SUPERVISING PHYSICIAN: Portillo De La Paz M.D. SUBJECTIVE: The patient has completed transfusion of 2 units of packed red blood cells last night without any complications. This morning he feels much better. Less short of breath and has had good response to treatment. He has had no chest pains, palpitations. He has been afebrile. OBJECTIVE: VITAL SIGNS: Temperature 98.1, pulse 60, blood pressure 117/70, respirations 18, satting 99% on 2 liters nasal cannula. I's and O's show a negative balance of 1118 with 1232 in, 2350 out. Weight is down to 83.6 kg from admission of 85.0 kg. GENERAL: The patient appears much more comfortable today in no acute distress. He is alert. CHEST: Lung sounds are much better aerated throughout all lung calderón. There is still a very faint rhonchi heard bilaterally but more prominent on the left than the right. HEART: Regular rate and rhythm with a mechanical valve click noted. ABDOMEN: Soft, non-tender. Positive bowel sounds. EXTREMITIES: Today show no evidence of clubbing, cyanosis or edema. NEUROLOGIC: He is alert and oriented times three. LABORATORY: Transfusion after 2 units his H&H shows to be at 10.1 and 31.0 respectively. His PT today is 27.1 with an INR of 2.74. Chemistries show normal electrolytes with potassium 4.1, BUN 23, creatinine 1.05, calcium 8.0. BNP has trended down at 164. RADIOLOGY: Repeat chest x-ray, 2 view chest this morning per radiology interpretation shows improving chest radiograph with improving pulmonary congestion and unchanged left bibasilar probable scar. ASSESSMENT: 1. Acute on chronic congestive heart failure, likely a diastolic dysfunction with last echocardiogram in July 2017 showing an ejection fraction of 53 to 55% with moderate pulmonary hypertension with the patient showing to be on admission in high output state secondary to his anemia resulting in exacerbation, improving with transfusion of blood products 2. Macrocytic/normochromic anemia, uncertain etiology with pending workup with GI specialist for colonoscopy in the coming week. 3. Rheumatic heart disease resulting in multiple heart surgeries with a mechanical valve and a pacemaker. 4. Subtherapeutic INR, improving but goal is between 3 and 4. Continue to monitor and dose Coumadin as needed. 5. Left eye hemorrhage followed by optometry with no concerns for immediate complications. PLAN: Will back off his Lasix today and just use 40 mg once and monitor his output closely. He will need to be on fluid restrictions with close I and O monitoring. He continues on a beta jenise and Neel inhibitor. Again, he has had a recent echocardiogram within the last year. Will plan to recheck his H&H later this afternoon and then in the morning. Anticipate discharging tomorrow afternoon. I have ordered ambulation study with the patient showing to be short of breath at rest. Anticipate probably the need for oxygen, but will await those study results. Until the patient can transition to outpatient management will continue to monitor and treat as needed. [facility][id number] [facility]
[2018-02-23] MEDS: SODIUM CHLORIDE 0.9% (FLUSH) 10 ML SYG IV SCH (20:44)
[2018-02-24] MEDS: PANTOPRAZOLE SODIUM IV 40 MG VIAL IV SCH (05:59)
[2018-02-24] MEDS ORDERED: FUROSEMIDE 40 MG TAB PO SCH (09:00)
[2018-02-24] MEDS ORDERED: POTASSIUM CHLORIDE 20 MEQ TAB PO SCH (09:00)
[2018-02-24] MEDS: DIGOXIN 0.25 MG TAB PO SCH (09:37)
[2018-02-24] MEDS: CARVEDILOL 12.5 MG TAB PO SCH (09:37)
[2018-02-24] MEDS: SODIUM CHLORIDE 0.9% (FLUSH) 10 ML SYG IV SCH (09:38)
[2018-02-24] MEDS: CAPTOPRIL 25 MG PO SCH (09:38)
[2018-02-24 09:59] VITALS: O2SAT 98
[2018-02-24 10:27] VITALS: BP 110/65; TEMP 97.5
--- NOTE | 2018-02-27 09:44 | DS ---
ADMISSION DIAGNOSIS: 1. Congestive heart failure of unknown etiology with acute exacerbation. 2. Normocytic/normochromic anemia of unknown etiology. He will have a workup next week with a colonoscopy with his GI specialist. 3. Rheumatic heart disease resulting in multiple heart surgeries. He presently has a mechanical valve and a pacemaker. 4. Subtherapeutic INR, which should be between 3 and 4. 5. Left eye hemorrhage, being followed by optometry and no concerns for immediate problems. DISCHARGE DIAGNOSIS: 1.. Acute on chronic congestive heart failure, probably a diastolic dysfunction with last echocardiogram in July 2017 showing an ejection fraction of 53% to 55% with moderate pulmonary hypertension with the patient showing to be high output state secondary to his anemia resulting in exacerbation but improving with transfusion of blood products prior to discharge. 2. Macrocytic/hyperchromic anemia, uncertain etiology, needing further workup, to be followed up with GI specialist for colonoscopy in the coming week at discharge. 3. Rheumatic heart disease resulting in multiple heart surgeries and a mechanical valve and a pacemaker. 4. Left eye hemorrhage followed by optometry with no concerns for immediate complications. LABORATORY: CBC on admission showed a white count of 5,500. Hemoglobin initially was 8.2, hematocrit 26.1. After units were infused to include 2 packs of red blood cells, hemoglobin went up to 10.1 and hematocrit 31.0 and stayed stable at discharge and was 10.0. and 30.5 respectively with a platelet count on admission of 171,000. Differential showed to be without a left shift. Coagulation studies showed he was subtherapeutic with his INR at 2.37 on admission but prior to discharge had gone up to 3.54 with a desired therapeutic range between 3 and 4. Chemistries showed normal electrolytes both on admission and discharge with a potassium of 4.1, discharge BUN 23, creatinine 1.05. Calcium 8.1. Liver functions showed slightly elevated bilirubin at 1.2, AST up to 57 and prior to discharge it had gone down to 47. BNP initially was 168 and was trending down to 164 at discharge. RADIOLOGY: He had several chest x-rays through his hospitalization. Initial chest x-ray showed enlarged heart with mild vascular congestion, patchy bibasilar infiltrates left more than right with small left pleural effusion. Last chest x-ray on 02/23/18, the day before discharge, per radiology interpretation showed improved chest radiograph. HOSPITAL COURSE: Mr. Hermosillo was admitted on 02/21/18 for symptomatic anemia with exacerbation of congestive heart failure. He was transfused 2 units of packed red blood cells which he tolerated without complication. His INR on admission was subtherapeutic, this was made therapeutic through his hospitalization and prior to discharge he was at therapeutic levels. He was feeling much better after units were infused and he was showing to have a fairly stable hemoglobin and hematocrit prior to discharge. Therefore, it was felt he could continue with outpatient management. PLAN: Mr. Hermosillo was discharged to have close followup, both with his GI specialist in the coming week as previously scheduled and to followup with Dr. Li in 7 days or less. He was to resume his home medications as instructed and he qualified for oxygen given he has had severe desaturations during ambulation studies He was encouraged to at least wear it at night.as directed. He was to return to the hospital should he have any concerning symptoms. No new medications were prescribed at discharge. All other medications were continued as prior to hospitalization. DISPOSITION: The patient is discharged to care of family and condition on discharge was stable and improved. #[id number] [facility]
== END 2018-02-24 10:35 | disposition home or self-care (01) | DRG 293 ==
LOC: MS 10:50
PROVIDERS: ADMIT Nurse Practitioner Acute Care; ATTEND Nurse Practitioner Acute Care
DX: I50.33 Acute on chronic diastolic (congestive) heart failure (principal); D53.9 Nutritional anemia, unspecified; H57.89 Other specified disorders of eye and adnexa; I09.9 Rheumatic heart disease, unspecified; M10.9 Gout, unspecified; Z86.73 Personal history of transient ischemic attack (TIA), and cerebral infarction without residual deficits; Z87.891 Personal history of nicotine dependence; Z95.0 Presence of cardiac pacemaker; Z79.01 Long term (current) use of anticoagulants

== ENCOUNTER → 2018-03-05 | Outpatient (CLI) | payer MEDICARE, OTHER | LOC: GMAE 14:12 | PROVIDERS: ATTEND Family Medicine | DX: D50.0 Iron deficiency anemia secondary to blood loss (chronic) (principal) ==

== ENCOUNTER → 2018-03-31 | Outpatient (CLI) | payer MEDICARE, OTHER | LOC: GMAE 10:56 | PROVIDERS: ATTEND Family Medicine | DX: R06.02 Shortness of breath (principal) ==

== ENCOUNTER → 2018-04-04 | Outpatient (CLI) | payer MEDICARE, OTHER | LOC: GMAE 10:40 | PROVIDERS: ATTEND Family Medicine | DX: I50.43 Acute on chronic combined systolic (congestive) and diastolic (congestive) heart failure (principal); E11.9 Type 2 diabetes mellitus without complications ==

== ENCOUNTER → 2018-04-04 | Outpatient (CLI) | payer MEDICARE, OTHER | LOC: GMAE 11:39 | PROVIDERS: ATTEND Family Medicine | DX: E53.8 Deficiency of other specified B group vitamins (principal); R06.02 Shortness of breath; I50.43 Acute on chronic combined systolic (congestive) and diastolic (congestive) heart failure; E11.9 Type 2 diabetes mellitus without complications ==

== ENCOUNTER → 2018-06-16 | Outpatient (CLI) | payer MEDICARE, OTHER | LOC: GMAE 14:25 | PROVIDERS: ATTEND Physician Assistant | DX: R04.0 Epistaxis (principal) ==

== ENCOUNTER → 2018-06-23 | Outpatient (CLI) | payer MEDICARE, OTHER | LOC: GMAE 10:59 | PROVIDERS: ATTEND Family Medicine | DX: R04.0 Epistaxis (principal); D68.69 Other thrombophilia ==

== ENCOUNTER → 2018-07-29 | Outpatient (CLI) | payer MEDICARE, OTHER | LOC: LAB.O 14:50 | PROVIDERS: ATTEND Internal Medicine Hematology & Oncology | DX: D64.9 Anemia, unspecified (principal); D50.9 Iron deficiency anemia, unspecified; D53.1 Other megaloblastic anemias, not elsewhere classified ==

== ENCOUNTER → 2018-08-06 | Outpatient (CLI) | payer MEDICARE, OTHER | LOC: GMAE 14:27 | PROVIDERS: ATTEND Family Medicine | DX: I50.40 Unspecified combined systolic (congestive) and diastolic (congestive) heart failure (principal); K92.2 Gastrointestinal hemorrhage, unspecified; Z95.2 Presence of prosthetic heart valve ==

== ENCOUNTER → 2018-08-26 | Outpatient (CLI) | payer MEDICARE, OTHER ==
--- NOTE | 2018-08-26 15:10 | CT ---
Procedure: CT CHEST WITH IV CONTRAST, CT ABDOMEN PELVIS WITH IV CONTRAST Exam Date: 08/26/2018 Ordering Provider: KEVIN MADDEN Clinical Indication: ANEMIA Comparison: 08/06/2014 CT abdomen pelvis TECHNIQUE: 5 mm images were taken through the chest, abdomen and pelvis following the administration of nonionic intravenous contrast material. Coronal and sagittal reformatted images were generated. This exam was performed according to our departmental dose optimization program which includes use of automated exposure control, adjustment of the mA and/or kV according to patient size and/or use of iterative reconstruction technique. FINDINGS: Chest: Lungs and large airways: Atelectasis in the dependent upper and lower lobes bilaterally. Additional subsegmental atelectasis and/or infiltrate in the lingula and left lower lobe. Mediastinum and ranjit: No lymphadenopathy by CT size criteria. Pleura: Moderate right and large left pleural effusions, left appearing somewhat loculated. Calcified pleural plaques on the left. No pneumothorax. Heart and great vessels: Cardiomegaly. No pericardial effusion. Prior aortic valve replacement. Prior CABG. Cardiac pacer in place. No aortic aneurysm Chest wall, lower neck, axillae: Left chest wall pacing device. No axillary lymphadenopathy. Abdomen: Liver: Subcentimeter liver lesions are too small to characterize. Slightly nodular contour of the liver suggestive of cirrhosis. Biliary system: Prior cholecystectomy. Spleen: Enlarged measuring up to 15.6 cm. Pancreas: No Pancreatic mass or CT evidence of acute pancreatitis. Adrenal glands: Unremarkable Kidneys: No hydronephrosis in either kidney. Subcentimeter lesions in both kidneys are too small to characterize. Lymph nodes: No lymphadenopathy by CT size criteria. There are a few shotty mesenteric and retroperitoneal lymph nodes. Retroperitoneum, peritoneal cavity, abdominal wall: Small amount of ascites. No free air. Small fat and fluid containing right inguinal hernia. Vessels: No abdominal aortic aneurysm. Pelvis: Lymph nodes: No lymphadenopathy Bowel: Colonic diverticulosis without evidence of diverticulitis. Normal appendix. No bowel obstruction. Bladder: Unremarkable Pelvic organs: Unremarkable Bones: Sternotomy wiring. No destructive bony lesions. IMPRESSION: 1. Atelectasis in the dependent upper and lower lobes bilaterally. Additional subsegmental atelectasis and/or infiltrate in the lingula and left lower lobe. 2. Moderate right and large left pleural effusions, left appearing somewhat loculated. 3. Slightly nodular contour of the liver suggestive of cirrhosis. 4. Splenomegaly. 5. Small amount of ascites. 6. Colonic diverticulosis without evidence of diverticulitis. Electronically signed by: Roddy Griffin MD 08/26/2018 3:08 PM CDT
== END ==
LOC: CT 08:30
PROVIDERS: ATTEND Internal Medicine Hematology & Oncology
DX: D64.9 Anemia, unspecified (principal); D59.9 Acquired hemolytic anemia, unspecified; J98.11 Atelectasis; J91.8 Pleural effusion in other conditions classified elsewhere; K76.9 Liver disease, unspecified; R16.1 Splenomegaly, not elsewhere classified; R18.8 Other ascites; K57.30 Diverticulosis of large intestine without perforation or abscess without bleeding

== ENCOUNTER → 2018-09-16 | Outpatient (CLI) | payer MEDICARE, OTHER | LOC: GMAE 14:25 | PROVIDERS: ATTEND Family Medicine | DX: D50.0 Iron deficiency anemia secondary to blood loss (chronic) (principal); I50.40 Unspecified combined systolic (congestive) and diastolic (congestive) heart failure ==

== ENCOUNTER → 2018-11-05 | Outpatient (CLI) | payer MEDICARE, OTHER | LOC: GMAE 11:14 | PROVIDERS: ATTEND Family Medicine | DX: D50.0 Iron deficiency anemia secondary to blood loss (chronic) (principal) ==

== ENCOUNTER → 2018-12-25 | Outpatient (CLI) | payer MEDICARE, OTHER | LOC: GMAE 10:54 | PROVIDERS: ATTEND Family Medicine | DX: D50.0 Iron deficiency anemia secondary to blood loss (chronic) (principal); Z79.01 Long term (current) use of anticoagulants ==

== ENCOUNTER → 2018-12-26 | Outpatient (CLI) | payer MEDICARE, OTHER | LOC: GMAE 12:12 | PROVIDERS: ATTEND Family Medicine | DX: D50.0 Iron deficiency anemia secondary to blood loss (chronic) (principal) ==

== ENCOUNTER → 2019-01-26 | Outpatient (CLI) | payer MEDICARE, OTHER | LOC: GMAE 10:36 | PROVIDERS: ATTEND Family Medicine | DX: D50.0 Iron deficiency anemia secondary to blood loss (chronic) (principal); Z79.01 Long term (current) use of anticoagulants ==

== ENCOUNTER → 2019-04-27 | Outpatient (CLI) | payer MEDICARE, OTHER | LOC: GMAE 10:29 | PROVIDERS: ATTEND Family Medicine | DX: D50.9 Iron deficiency anemia, unspecified (principal) ==

== ENCOUNTER 2019-06-03 00:03 | Inpatient (IN) | payer MEDICARE, OTHER ==
--- NOTE | 2019-06-03 01:10 | RAD ---
EXAM DESCRIPTION: Chest,1 View CLINICAL HISTORY: 73 years Male, SOB. H/O CHF. COMPARISON: Chest x-ray February 23, 2018. FINDINGS: Cardiac pacer is again noted. There is an opacity in the left lower lung zone. No pneumothorax. There is blunting of the left costophrenic angle which may represent a small left pleural effusion. Heart size appears enlarged. Aortic atherosclerosis is present. Osseous structures are unremarkable. IMPRESSION: Left basilar pulmonary opacity which may represent atelectasis or infiltrate with possible small left pleural effusion. Electronically signed by: Ford Zuleta MD 06/03/2019 1:09 AM CDT
--- NOTE | 2019-06-04 07:34 | RAD ---
Study: Frontal and Lateral Radiographs of the Chest. Indication: CHF Comparison: June 03, 2019 Impression: Cardiac pacemaker and median sternotomy wires redemonstrated. Cardiomegaly. Persistent left basilar consolidation with moderate left pleural effusion. No pneumothorax. Continued follow-up recommended. Mild opacity at the right lung base. Electronically signed by: Hermes Baum MD 06/04/2019 7:32 AM CDT
--- NOTE | 2019-06-05 11:16 | US ---
EXAM DESCRIPTION: Abdomen,Complete: Ultrasound. CLINICAL HISTORY: 73 years Maleascites COMPARISON: None Available. TECHNIQUE: Transabdominal scanning: grayscale and Doppler modes. FINDINGS: Moderate amount of ascites seen in all 4 quadrants of the abdomen and in the upper pelvis. Most fluid is in the right lower quadrant. IMPRESSION: Moderate ascites in all 4 quadrants. Electronically signed by: Denilson Sexton MD 06/05/2019 11:14 AM CDT
--- NOTE | 2019-06-07 07:32 | RAD ---
EXAM: Two view chest. INDICATION: CHF. COMPARISON: Chest x-ray: 06/04/2019. FINDINGS: There is a grossly stable left basilar airspace opacity with moderate pleural effusion effusion. The heart is enlarged with a left chest wall pacemaker in place. There is no pneumothorax. The bones are unchanged. IMPRESSION: Grossly stable left basilar airspace opacity with left pleural effusion. Electronically signed by: Kam Tompkins MD 06/07/2019 7:28 AM CDT
[2019-06-07 13:16] VITALS: BP 109/70; TEMP 98; O2SAT 94
== END 2019-06-07 16:50 | disposition home or self-care (01) | DRG 291 ==
LOC: ER 00:03 → MS 02:08 → OBSVTOIN 02:08
PROVIDERS: ADMIT Nurse Practitioner Family; ATTEND Nurse Practitioner Family
DX: I13.0 Hypertensive heart and chronic kidney disease with heart failure and stage 1 through stage 4 chronic kidney disease, or unspecified chronic kidney disease (principal); J18.9 Pneumonia, unspecified organism; I50.30 Unspecified diastolic (congestive) heart failure; N17.9 Acute kidney failure, unspecified; R18.8 Other ascites; J44.0 Chronic obstructive pulmonary disease with (acute) lower respiratory infection; E87.6 Hypokalemia; N18.9 Chronic kidney disease, unspecified; M10.9 Gout, unspecified; D50.0 Iron deficiency anemia secondary to blood loss (chronic); Q27.33 Arteriovenous malformation of digestive system vessel; K74.60 Unspecified cirrhosis of liver; Z95.2 Presence of prosthetic heart valve; Z79.01 Long term (current) use of anticoagulants; Z87.891 Personal history of nicotine dependence; Z95.0 Presence of cardiac pacemaker; Z79.899 Other long term (current) drug therapy